=== PATIENT | male | born 1945 | race Caucasian/White ===

== ENCOUNTER 2017-08-12 11:48 | Emergency (ER) | payer MEDICARE ==
[~2017-08-12] VITALS: Ht 180.3 cm; Wt 83.5 kg
[2017-08-12] MEDS ORDERED: TACROLIMUS0.5 MG PO (12:10)
[2017-08-12] MEDS ORDERED: AMLODIPINE BES2.5 MG PO (12:10)
[2017-08-12] MEDS ORDERED: ASPIRIN81 MG PO (12:11)
[2017-08-12] MEDS ORDERED: PEPCID20 MG PO (12:11)
[2017-08-12] MEDS ORDERED: MYCOPHENOLATE500 MG PO (12:11)
[2017-08-12] MEDS ORDERED: PRAVASTATIN SOD10 MG PO (12:12)
[2017-08-12] MEDS ORDERED: TUMS200 MG PO (12:13)
[2017-08-12] MEDS ORDERED: FISH OIL 1,0001 EAC2 PO (12:14)
[2017-08-12] MEDS ORDERED: ONDANSETRON ODT8 MG PO (14:11)
== END 2017-08-12 14:55 | disposition home or self-care (01) ==
LOC: ED 11:48
DX: K52.9 Noninfective gastroenteritis and colitis, unspecified (principal); Z88.8 Allergy status to other drugs, medicaments and biological substances; Z79.82 Long term (current) use of aspirin; Z79.899 Other long term (current) drug therapy
CPT/HCPCS: 80053; 85025; 96360; 99284; J7030